=== PATIENT | female | born 1970 | race Caucasian/White ===

== ENCOUNTER 2019-06-15 16:02 | Observation (INO) ==
[2019-06-15] MEDS ORDERED: SODIUM CHLORIDE 0.9% 1,000 ML IV STA (17:09)
[2019-06-15 17:30] LABS: Acetaminophen < 2.0 UG/ML (10-30); Salicylate 4.7 MG/DL (2.8-20)
[2019-06-15 17:32] LABS: Alanine Aminotransferase 50 U/L (13-56); Albumin 3.5 G/DL (3.4-5.0); Alkaline Phosphatase 40 U/L (45-117); Aspartate Amino Transferase 40 U/L (0-37); Bilirubin,Total < 0.39 MG/DL (0.2-1.0); Blood Urea Nitrogen 13 MG/DL (7-18); Calcium 8.4 MG/DL (8.5-10.1); Estimated Glom Filtration Rate 77 ML/MIN; Glucose 155 MG/DL (74-106); Osmolality,Calculated 272.1 MOS/KG (273-304)
[2019-06-15 17:34] LABS: Basophils # 0.1 10*3/uL (0.0-0.2); Eosinophils # 0.2 10*3/uL (0.0-0.87); Eosinophils % 2.5 % (0.00-10.9); Hematocrit 42.3 VOL% (35.7-47.0); Hemoglobin 14.7 GM/DL (12.0-16.0); Immature Granulocytes % 0.3 %; Immature Granulocytes Absolute 0.02 #; Lymphocytes # 1.8 10*3/uL (1.4-4.0); Lymphocytes % 28.8 % (21.3-54.2); Mean Corpuscular HGB Conc 34.8 GM/DL (32-36); Mean Corpuscular Volume 93.2 FL (87-102); Monocytes % 10.2 % (1.7-12.7); Neutrophils % 57.2 % (38.7-73.9); Platelet Count 180 T/CUMM (130-400); Red Blood Count 4.54 MC/CUMM (3.8-5.5); Red Cell Distribution Width 12.7 % (9.3-17.3); White Blood Count 6.3 T/CUMM (4-12)
[2019-06-15 17:41] LABS: Apearance,Urine CLEAR (Clear); Bacteria,Urine Few /HPF (Few); Bilirubin,Urine Negative (Negative); Blood, Urine Negative (Negative); Glucose,Urine (UA) Negative (Negative); Ketones,Urine Negative (Negative); Mucus,Urine Occasional /LPF (Occasional); Nitrite,Urine Negative (Negative); Protein,Urine Negative; RBC,Urine 1 /HPF (0-4); Squamous Epithelial Cell,Urine Occasional /HPF (0-10); Urine Color Yellow (Yellow); Urine Specific Gravity 1.013 (1.001-1.035); Urine Urobilinogen < 2.0 EU/DL (0.2-1.0); WBC,Urine 2 /HPF (0-6)
[2019-06-15 17:45] LABS: Barbiturates Screen,Urine Negative (Negative); Benzodiazepines Screen,Urine Positive (Negative); Cannabinoid Screen,Urine Positive (Negative); Opiate Screen,Urine Negative (Negative); Phencyclidine Screen,Urine Negative (Negative)
[2019-06-15] MEDS ORDERED: ACETAMINOPHEN 500 MG TABLET PO STA (21:18)
[2019-06-15] MEDS ORDERED: ONDANSETRON 4 MG/2 ML VIAL IV PRN (22:32)
[2019-06-15] MEDS ORDERED: NICOTINE 21 MG/24 HR PATCH TRANSDERM PRN (22:32)
[2019-06-15] MEDS ORDERED: DOCUSATE SODIUM 100 MG CAPSULE PO PRN (22:32)
[2019-06-15] MEDS ORDERED: LORazepam 2 MG/1 ML VIAL IV PRN (22:47)
[2019-06-16] MEDS: ENOXAPARIN 40 MG/0.4 ML SYRINGE SUBCUT SCH ×2 (00:10→23:24)
[2019-06-16] MEDS: SODIUM CHLORIDE 0.9% 1,000 ML IV SCH ×4 (00:11→23:28)
[2019-06-16 04:50] LABS: Basophils % 0.8 % (0.0-0.8); Eosinophils # 0.2 10*3/uL (0.0-0.87); Eosinophils % 3.3 % (0.00-10.9); Hematocrit 37.4 VOL% (35.7-47.0); Hemoglobin 13.1 GM/DL (12.0-16.0); Lymphocytes # 2.2 10*3/uL (1.4-4.0); Lymphocytes % 44.8 % (21.3-54.2); Mean Corpuscular Volume 93.5 FL (87-102); Mean Platelet Volume 10.5 FL (9.6-12.0); Monocytes % 11.6 % (1.7-12.7); Neutrophils % 39.5 % (38.7-73.9); Platelet Count 178 T/CUMM (130-400); Red Cell Distribution Width 12.5 % (9.3-17.3); White Blood Count 4.8 T/CUMM (4-12)
[2019-06-16 05:15] LABS: Calcium 7.9 MG/DL (8.5-10.1); Osmolality,Calculated 278.4 MOS/KG (273-304)
[2019-06-16] MEDS: ACETAMINOPHEN 325 MG TABLET PO PRN ×3 (08:15→19:48)
[2019-06-16] MEDS: ESTRADIOL 2 MG TABLET PO SCH (08:15)
[2019-06-16] MEDS: LORazepam 2 MG/1 ML VIAL IV PRN ×3 (11:31→19:45)
[2019-06-17] MEDS: LORazepam 2 MG/1 ML VIAL IV PRN ×2 (03:22→08:21)
[2019-06-17] MEDS: SODIUM CHLORIDE 0.9% 1,000 ML IV SCH ×2 (04:13→07:37)
[2019-06-17 05:06] LABS: Basophils # 0.1 10*3/uL (0.0-0.2); Basophils % 1.1 % (0.0-0.8); Eosinophils # 0.1 10*3/uL (0.0-0.87); Eosinophils % 2.9 % (0.00-10.9); Hematocrit 35.6 VOL% (35.7-47.0); Hemoglobin 12.3 GM/DL (12.0-16.0); Immature Granulocytes % 0.2 %; Immature Granulocytes Absolute 0.01 #; Lymphocytes # 1.8 10*3/uL (1.4-4.0); Lymphocytes % 40.7 % (21.3-54.2); Mean Corpuscular HGB Conc 34.6 GM/DL (32-36); Mean Corpuscular Volume 94.9 FL (87-102); Mean Platelet Volume 10.2 FL (9.6-12.0); Neutrophils % 44.1 % (38.7-73.9); Platelet Count 156 T/CUMM (130-400); Red Blood Count 3.75 MC/CUMM (3.8-5.5); Red Cell Distribution Width 12.5 % (9.3-17.3); White Blood Count 4.5 T/CUMM (4-12)
[2019-06-17 05:42] LABS: Albumin 2.9 G/DL (3.4-5.0); Bilirubin,Total 0.6 MG/DL (0.2-1.0); Calcium 8.3 MG/DL (8.5-10.1); Osmolality,Calculated 279.1 MOS/KG (273-304); Total Protein 5.7 G/DL (6.4-8.3)
[2019-06-17] MEDS: ESTRADIOL 2 MG TABLET PO SCH (08:21)
[2019-06-17 12:07] VITALS: BP 133/63
== END 2019-06-17 12:25 | disposition home or self-care (01) ==
LOC: EDBD → EDUNIT# → N.EDINP 16:02 → N.ED 16:02 → N.EDINP 23:48 → N.TELEN 06-16 00:09
PROVIDERS: ADMIT Family Medicine; ATTEND Family Medicine

== ENCOUNTER 2021-11-07 13:09 | Observation (INO) ==
[2021-11-07] MEDS ORDERED: SODIUM CHLORIDE 0.9% 1,000 ML IV STA (15:27)
[2021-11-07 16:36] LABS: Basophils # 0.1 10*3/uL (0.0-0.2); Basophils % 0.9 % (0.0-0.8); Eosinophils # 0.2 10*3/uL (0.0-0.87); Eosinophils % 2.6 % (0.00-10.9); Hematocrit 42.6 VOL% (35.7-47.0); Hemoglobin 14.5 GM/DL (12.0-16.0); Immature Granulocytes % 0.4 %; Immature Granulocytes Absolute 0.03 #; Lymphocytes # 2.1 10*3/uL (1.4-4.0); Lymphocytes % 27.9 % (21.3-54.2); Mean Corpuscular Volume 94.5 FL (87-102); Mean Platelet Volume 9.7 FL (9.6-12.0); Monocytes # 0.8 10*3/uL (0.11-0.8); Monocytes % 10.3 % (1.7-12.7); Neutrophils % 57.9 % (38.7-73.9); Platelet Count 285 T/CUMM (130-400); Red Blood Count 4.51 MC/CUMM (3.8-5.5); White Blood Count 7.7 T/CUMM (4-12)
[2021-11-07 17:03] LABS: Albumin 4.8 G/DL (3.4-5.0); Osmolality,Calculated 269.1 MOS/KG (273-304); Potassium 3.7 MMOL/L (3.5-5.1); Total Protein 9.6 G/DL (6.4-8.2)
[2021-11-07 17:08] LABS: Platelet Estimate Normal
[2021-11-07 17:25] LABS: RBC,Urine 1 /HPF (0-4); Squamous Epithelial Cell,Urine Occasional /HPF (0-10); Urine Appearance Clear (Clear); Urine Color Yellow (Yellow)
[2021-11-07 17:26] LABS: Bilirubin,Urine Negative (Negative); Blood, Urine Negative (Negative); Glucose,Urine (UA) Negative (Negative); Ketones,Urine Negative (Negative); Nitrite,Urine Negative (Negative); Protein,Urine Trace mg/dL (Negative); Urine Urobilinogen 0.2 eU/dL (<2.0)
[2021-11-07 17:47] LABS: Barbiturates Screen,Urine Negative (Negative); Benzodiazepines Screen,Urine Negative (Negative); Cannabinoid Screen,Urine Positive (Negative); Opiate Screen,Urine Negative (Negative); Phencyclidine Screen,Urine Negative (Negative)
[2021-11-07] MEDS ORDERED: ONDANSETRON 4 MG/2 ML VIAL IV PRN (18:53)
[2021-11-07] MEDS ORDERED: diphenhydrAMINE CAP 25 MG CAPSULE PO PRN (18:53)
[2021-11-07] MEDS ORDERED: hydrALAZINE 20 MG/1 ML VIAL IV PRN (18:53)
[2021-11-07] MEDS ORDERED: NICOTINE 21 MG/24 HR PATCH TRANSDERM PRN (18:53)
[2021-11-07] MEDS ORDERED: GLUCAGON 1 MG VIAL IM PRN (18:53)
[2021-11-07] MEDS ORDERED: ACETAMINOPHEN 325 MG TABLET PO PRN (18:53)
[2021-11-07] MEDS ORDERED: ORPHENADRINE 60 MG/2 ML VIAL IM STA (18:53)
[2021-11-07] MEDS ORDERED: ZALEPLON 5 MG CAPSULE PO PRN (18:53)
[2021-11-07] MEDS ORDERED: guaiFENesin/DM ER 600-30 MG TABLET PO PRN (18:53)
[2021-11-07] MEDS ORDERED: DEXTROSE 10% 250 ML BAG IV PRN (18:53)
[2021-11-07] MEDS: DOCUSATE SODIUM 100 MG CAPSULE PO SCH (21:46)
[2021-11-07] MEDS: HEPARIN 5,000 UNIT/1 ML VIAL SUBCUT SCH (21:47)
[2021-11-07] MEDS: SODIUM CHLORIDE 0.9% 1,000 ML IV SCH (23:11)
[2021-11-08 05:03] LABS: Basophils # 0.1 10*3/uL (0.0-0.2); Eosinophils # 0.4 10*3/uL (0.0-0.87); Eosinophils % 6.2 % (0.00-10.9); Hemoglobin 13.1 GM/DL (12.0-16.0); Immature Granulocytes % 0.2 %; Immature Granulocytes Absolute 0.01 #; Lymphocytes % 32.5 % (21.3-54.2); Mean Corpuscular HGB Conc 33.6 GM/DL (32-36); Mean Corpuscular Volume 95.6 FL (87-102); Monocytes # 0.6 10*3/uL (0.11-0.8); Monocytes % 10.5 % (1.7-12.7); Neutrophils % 49.6 % (38.7-73.9); Platelet Count 263 T/CUMM (130-400); Red Blood Count 4.08 MC/CUMM (3.8-5.5); Red Cell Distribution Width 11.9 % (9.3-17.3); White Blood Count 6.1 T/CUMM (4-12)
[2021-11-08] MEDS: SODIUM CHLORIDE 0.9% 1,000 ML IV SCH ×2 (05:05→12:03)
[2021-11-08 05:45] LABS: Calcium 9.1 MG/DL (8.5-10.1); Osmolality,Calculated 279.4 MOS/KG (273-304); Potassium 3.4 MMOL/L (3.5-5.1)
[2021-11-08] MEDS ORDERED: POTASSIUM CHLORIDE 20 MEQ TABLET PO ONE (07:22)
[2021-11-08] MEDS ORDERED: PANTOPRAZOLE 40 MG TABLET PO SCH (09:00)
[2021-11-08 09:28] VITALS: BP 122/88
[2021-11-08] MEDS: DOCUSATE SODIUM 100 MG CAPSULE PO SCH (10:09)
[2021-11-08] MEDS: HEPARIN 5,000 UNIT/1 ML VIAL SUBCUT SCH (10:10)
== END 2021-11-08 11:00 | disposition home or self-care (01) ==
LOC: N.ED 13:09 → N.TELES 13:09 → SUATTDRO 18:25 → N.TELES 20:58
PROVIDERS: ADMIT Internal Medicine; ATTEND Family Medicine